=== PATIENT | female | born 1960 | race Caucasian/White ===

== ENCOUNTER 2016-04-07 08:02 | Outpatient (CLI) | payer OTHER ==
[2016-04-07 09:21] LABS: ALT (SGPT) 23 U/L (0-55); AST (SGOT) 16 U/L (5-34); Alkaline Phosphatase 74 U/L (40-150); Bilirubin, Direct 0.4 mg/dL (0.1-0.3); Bilirubin, Total 1.2 mg/dL (0.2-1.2); LDL Cholesterol, Calculated 116 mg/dL; Protein, Total 6.6 g/dL (6.0-8.3)
== END 2016-04-07 08:03 | disposition home or self-care (01) ==
LOC: BURLAB 08:02
PROVIDERS: ATTEND Family Medicine
DX: E78.5 Hyperlipidemia, unspecified (principal)
CPT/HCPCS: 36415; 80061; 80076

== ENCOUNTER 2016-10-19 09:32 | Emergency (ER) | payer OTHER ==
[2016-10-19 09:59] LABS: Bilirubin Negative (Negative); Blood, Urine Moderate (Negative); Clarity Cloudy (Clear); Glucose, Urine (Dipstick) Negative (Negative); Leukocyte Trace (Negative); Nitrite Negative (Negative); Protein, Urine (Dipstick) 30 mg/dL (Neg-Trace); Urobilinogen 0.2 mg/dL (0.2-1.0)
[2016-10-19 10:01] LABS: Specific Gravity, Urine 1.025 (1.005-1.030)
[2016-10-19 10:07] LABS: Bacteria/HPF 2+ HPF (None Seen); Squamous Epithelial 0-3 HPF (0-3)
[2016-10-19 10:08] LABS: Hyaline Casts/LPF 0-3 HYALINE CAST LPF (0-3 Hyaline); Other Microscopic Description 1+ AMORPHOUS URATES
[2016-10-19 10:09] LABS: Crystals/HPF 4+ CA OXALATE HPF (Negative)
[2016-10-19 10:10] LABS: RBC/HPF None Seen HPF (0-3)
[2016-10-19 10:15] LABS: #Basophils 0.1 thou/uL (0.0-0.2); #Monocytes 0.5 thou/uL (0.11-0.59); #Neutrophils 6.1 thou/uL (1.40-6.50); %Basophils 0.7 % (0.0-1.0); %Eosinophils 0.2 % (0.0-10.0); %Lymphocytes 13.2 % (21.0-51.0); %Monocytes 6.5 % (0.0-10.0); %Neutrophils 79.4 % (42.0-75.0); Hemoglobin 14.1 g/dL (12.0-16.0); Mean Corpuscular HGB CONC 33.1 g/dL (32.0-36.0); Mean Corpuscular Hemoglobin 31.9 pg (27.0-31.0); Mean Corpuscular Volume 96.3 fl (81.0-99.0); Mean Platelet Volume 6.2 fL (7.4-10.4); Platelet Count 305 thou/uL (130-400); RBC Distribution Width 12.2 % (11.5-14.5); Red Blood Cell (RBC) Count 4.41 mill/uL (4.20-5.40); White Blood Cell (WBC) Count 7.7 thou/uL (4.8-10.8)
[2016-10-19 10:21] LABS: ALT (SGPT) 47 U/L (8-55); AST (SGOT) 28 U/L (5-34); Albumin 4.3 g/dL (3.5-5.0); Alkaline Phosphatase 94 U/L (40-150); Anion Gap 13 mmol/L (10-20); BUN (Urea Nitrogen) 15 mg/dL (9.8-20.1); Bilirubin, Total 1.6 mg/dL (0.2-1.2); Calc. Creatinine Clearance 0 mL/min (70-130); Calcium 9.6 mg/dL (7.8-10.44); Carbon Dioxide 25 mmol/L (22-29); Chloride 107 mmol/L (98-107); Estimated GFR-MDRD 67; Globulin 2.9 g/dL (2.4-3.5); Glucose 123 mg/dL (70-105); Lipase 28 U/L (8-78); Potassium 4.7 mmol/L (3.5-5.1); Protein, Total 7.2 g/dL (6.0-8.3); Sodium 140 mmol/L (136-145)
[2016-10-19] MEDS ORDERED: Lidocaine 1% 20 ML MDV ONE (10:29)
[2016-10-19] MEDS ORDERED: cefTRIAXone\\ROCEPHIN 1 GM VIAL ONE (10:29)
--- NOTE | 2016-10-19 11:40 | CT ---
EXAM: ABDOMEN CT WITHOUT CONTRAST PELVIC CT WITHOUT CONTRAST: HISTORY: Hematuria. Left flank pain. COMPARISON: None. TECHNIQUE: Abdomen and pelvic CT are performed without IV or oral contrast. Coronal reformatted images are sub mitted for interpretation. FINDINGS: ABDOMEN CT: Lung bases are clear. Heart size is normal. No pericardial effusion. The visualized aorta has a n ormal caliber. No periaortic fat stranding. Limited evaluation of the solid organs due to lack of IV contrast. No solid organ abnormality. CT evidence of cholelithiasis without evidence of cholecystitis. Scattered nonspecific mesenteric lymph nodes. Correlate for mesenteric lymphadenitis. Visualized l ymph node measures 1.7 cm in the craniocaudal dimension. No mesenteric mass, free air, or free flui d. Limited evaluation of the alimentary canal due to lack of oral contrast. Multiple nondistended smal l bowel loops are noted. Ileocecal junction is normal. Scattered fecal material in a nondistended, nondilated colon. Occasional diverticulum. No diverticulitis. Bilaterally, no evidence of nephrolithiasis or significant perinephric fat stranding. Right intra- and extrarenal collecting systems decompress. There is mild to moderate dilatation of the left intra- and extrarenal collecting system with periur eteral fat stranding. There appears to be a calcification in the distal left ureter, just proximal to the left ureterovesical junction measuring 0.[address]: No mass, lymphadenopathy, free air, or free fluid. The uterus and adnexa are unremarkable. Left ov agus follicle is noted. No calcifications in the urinary bladder. No osteoblastic or osteolytic lesions. IMPRESSION: 1. Mild to moderate left-sided obstructive uropathy secondary to a distal left ureter calcification s just proximal to the left ureterovesicular junction. 2. Enlarged mesenteric lymph nodes. Correlate for mesenteric lymphadenitis. POS: [facility]
== END 2016-10-19 13:03 | disposition short-term general hospital (02) ==
LOC: BURERS 09:32
DX: N20.2 Calculus of kidney with calculus of ureter (principal); N39.0 Urinary tract infection, site not specified; M19.90 Unspecified osteoarthritis, unspecified site; E78.5 Hyperlipidemia, unspecified; Z79.899 Other long term (current) drug therapy
CPT/HCPCS: 36415; 74176; 80053; 81003; 81015; 83690; 85025; 87086; 96372; J0696; J2001

== ENCOUNTER 2018-01-05 16:52 | Outpatient (CLI) | payer OTHER ==
--- NOTE | 2018-01-05 22:02 | RAD ---
RIGHT SHOULDER THREE VIEWS: 01/05/18 No fracture, dislocation, or AC joint widening was seen. There was a tiny calcific nicole on the under surface of the clavicle where the coracoclavicular ligaments attach. There may have been an old injur y here, but the finding is extremely minimal. The glenohumeral joint was unremarkable. Clavicle appea rs intact. IMPRESSION: No significant finding. POS: HOME
== END 2018-01-05 16:53 | disposition home or self-care (01) ==
LOC: BURRAD 16:52
PROVIDERS: ATTEND Nurse Practitioner
DX: S40.011A Contusion of right shoulder, initial encounter (principal)